=== PATIENT | female | born 1975 | race Caucasian/White ===

== ENCOUNTER 2016-08-22 05:12 | Day surgery (SDC) | payer MEDICAID ==
[2016-08-20 14:51] LABS: BASOPHILS 0.2 % (0.0-2.0); EOSINOPHILS 0.9 % (0-7); HEMATOCRIT 45.6 % (36.0-48.0); HEMOGLOBIN 15.5 g/dL (12-16); IMMATURE GRANULOCYTES 0.3 % (0-5); LYMPHOCYTES 27.3 % (15-50); MCH 30.1 pg (26.0-34.0); MCV 88.5 fL (80.0-100.0); MEAN PLATELET VOLUME 10.4 fL (7.4-10.4); MONOCYTES 5.9 % (2-11); NEUTROPHILS 65.4 % (40-80); PLATELET COUNT 200 10x3/uL (130-400); RBC 5.15 10x6/uL (4.00-5.40); RDW 13.6 % (11.5-14.5); WBC 9.7 10x3/uL (4.8-10.8)
[2016-08-20 15:25] LABS: CALC OSMOLALITY 280 mosm/kg (275-300); CALCIUM 8.8 mg/dL (8.5-10.1); CARBON DIOXIDE 22.2 mmol/L (21.0-32.0); CHLORIDE - SERUM 101 mmol/L (98-107); CREATININE - SERUM 0.6 mg/dL (0.6-1.3); GLUCOSE 267 mg/dL (74-106); POTASSIUM - SERUM 4.1 mmol/L (3.5-5.1); SODIUM 136 mmol/L (136-145); UREA NITROGEN 12 mg/dL (7-18); eGFR NON AFRICAN AMERICAN > 90 mL/min (90-120)
[~2016-08-22] VITALS: Ht 167.6 cm; Wt 92.1 kg
[~2016-08-22 05:12] MED LIST: BUPROPION HCL100 M1 PO; FARXIGA10 MG PO; JANUMET XR 1001 EACH PO; LOPRESSOR25 MG PO
[2016-08-22] MEDS ORDERED: DIFLUCAN100 MG PO (06:39)
[2016-08-22 06:41] VITALS: BP 123/72; Ht 167.6 cm; Wt 92.1 kg
[2016-08-22 06:59] LABS: HCG URINE NEGATIVE (NEGATIVE)
--- NOTE | 2016-08-22 13:10 | NUR ---
1300-IV DISCONTINUED, CATHETER INTACT, COTTON BALL AND BANDAID APPLIED. DISCHARGE INSTRUCTIONS GIVEN. ESCORTED VIA WHEELCHAIR TO PERSONAL CAR, LEFT WITH DRIVING.
--- NOTE | 2016-08-27 14:40 | OP ---
PATIENT NAME: SISI GUALLPA MEDICAL RECORD: [id number] :71 LOCATION:[facility] ADMISSION DATE: SURGEON: CLARENCE DO MD DATE OF OPERATION: 08/22/2016 PREOPERATIVE DIAGNOSES: Menorrhagia. POSTOPERATIVE DIAGNOSES: Menorrhagia. PROCEDURE: Hysteroscopy and NovaSure endometrial ablation. SURGEON: lCarence Do MD ESTIMATED BLOOD LOSS: Minimal. ANESTHESIA: General endotracheal. INTRAVENOUS FLUIDS: Per anesthesia records. HYSTEROSCOPIC FLUID LOSS: Approximately 200 cc of 0.9 normal saline. COMPLICATIONS: None apparent. FINDINGS: 1. Grossly normal appearing endometrium. 2. Grossly normal appearing cervix. 3. Grade II cystocele. PROCEDURE IN DETAIL: The patient was taken to the operating room, where general anesthesia was achieved without difficulty. The patient was then prepped and draped in normal sterile fashion in the dorsal lithotomy position in the [facility]. SCDs were on and functioning normally. At this point, the bladder was drained of approximately 10 cc of clear yellow urine. A Graves speculum was then placed into the vagina and the cervix was identified and grasped on its anterior lip with a single tooth tenaculum. Uterus sounded to approximately 9 cm. Cervical length assessment was performed and the cervix found to be approximately 3.5 cm. At this point, the 3 mm hysteroscope was used to survey the uterus without difficulty. The NovaSure device was then checked for non-working parts and found to be functioning normally. The cervix was dilated to approximately 8 mm and the NovaSure was inserted until a gentle resistance was felt at the fundus, at which point it was withdrawn approximately 1.5 cm. At this point, the array was deployed and cavity assessment was performed and found to be 4.5 cm width and depth at 5.5 cm. At this point, the pressure assessment passed as well as the vacuum assessment. The machine was enabled and a burn cycle of approximately 70 seconds was performed. The bow and arrow technique was used to remove the array without difficulty. No bleeding was noted from the cervical os at that time. Tenaculum was removed. The patient tolerated the procedure well, transferred to postanesthesia recovery stable without incident. TRANSINT:[id number] Voice Confirmation ID: [id number] DOCUMENT ID: [id number] OPERATIVE REPORT [id number] SISI GUALLPA CLARENCE DO MD at 1437 CC: [id number] DICTATION DATE: 08/22/16 1117 CNC MACHINIST 2ND SHIFT: 08/22/16 1159 [facility] [place] 08/22/16 [id number] [place] [address]
== END 2016-08-22 13:00 | disposition home or self-care (01) ==
LOC: D.OPS 05:12 → D.PAN 09:30 → D.OPS 10:15
PROVIDERS: Anesthesiology; Obstetrics & Gynecology
DX: N93.9 Abnormal uterine and vaginal bleeding, unspecified (principal); F17.200 Nicotine dependence, unspecified, uncomplicated; I10 Essential (primary) hypertension; E11.9 Type 2 diabetes mellitus without complications